=== PATIENT | male | born 1985 | race Caucasian/White ===

== ENCOUNTER 2021-12-10 22:05 | Inpatient (IN) | payer BC ==
--- NOTE | 2021-12-10 22:24 | ED ---
Abdominal Pain HPI - General Stated Complaint: Abd Pain Time Seen by Provider: 12/10/21 22:07 Source: patient, EMS Mode of arrival: EMS - History of Present Illness Initial Comments: Rashmi is a 36-year-old male with a history of diverticulitis. Patient was admitted to [facility] a week and a half ago for diverticulitis, history with IV antibiotics was signed himself out AMA one week ago today. Earlier today saw his primary care had outpatient labs done and was told his white count was high and he should be reevaluated. Patient has had persistent pain in the left lower quadrant. He had repeat imaging done at outside facility today and found that he has a 9 cm segment of circumferential wall thickening of the sigmoid colon consistent with a sigmoid colitis as well as evidence of microperf oration and adjacent phlegmon measuring 38 x 20 x 20 mm. Patient was treated with IV Zosyn and requested transfer to this facility. - Related Data Home Medications Medication Instructions Recorded Confirmed Dicyclomine [Bentyl] 10 mg PO DAILY 12/10/21 12/10/21 Levofloxacin [Levaquin] 750 mg PO DAILY 12/10/21 12/10/21 Omeprazole 40 mg PO BID 12/10/21 12/10/21 metroNIDAZOLE [Flagyl] 500 mg PO TID@0700,1500,2300 12/10/21 12/10/21 Allergies Allergy/AdvReac Type Severity Reaction Status Date / Time No Known Allergies Allergy Verified 12/10/21 22:53 Review of Systems ROS Statement: Those systems with pertinent positive or pertinent negative responses have been documented in the HPI. ROS Other: All systems not noted in ROS Statement are negative. General Exam - General Exam Comments Initial Comments: Physical Exam GENERAL: Patient is well-developed and well-nourished. Patient is nontoxic and well-hydrated and is in no distress. HENT: Normocephalic, Atraumatic. EYES: PERRL, EOMI PULMONARY: Unlabored respirations. CARDIOVASCULAR: RRR Warm and well perfused extremities ABDOMEN: Tender in LLQ SKIN: No rashes or bruising : Deferred NEUROLOGIC: Alert and oriented Normal speech Normal gait MUSCULOSKELETAL: Moving all extremities with no apparent injury PSYCHIATRIC: No SI/HI Course Vital Signs 12/10/21 22:10 Temperature 98.3 F Pulse Rate 88 Respiratory 18 Rate Blood Pressure 137/96 O2 Sat by Pulse 100 Oximetry Medical Decision Making - Medical Decision Making Patient was seen and evaluated, history was obtained from the patient and review of palpation records Patient will be admitted for diverticulitis with microperforation and abscess Patient care discussed with Dr Mosley who accepts admission with consult to surgery Disposition Clinical Impression: Diverticulitis, Abdominal abscess Disposition: ADMITTED IP TO THIS [facility] Condition: Stable Is patient prescribed a controlled substance at d/c from ED?: No Referrals: Fei Powell MD [Primary Care Provider] - 1-2 days
[2021-12-10] MEDS ORDERED: MORPHINE SULFATE 4 MG/ML SYRINGE IV PRN (23:06)
[2021-12-10] MEDS ORDERED: ONDANSETRON 4 MG/2 ML VIAL IVP PRN (23:06)
[2021-12-10] MEDS ORDERED: NALOXONE 0.4 MG/ML 1 ML VIAL IV PRN (23:06)
[2021-12-10] MEDS: SODIUM CHLORIDE 0.9% 1,000 ML IV SCH (23:37)
[2021-12-11] MEDS: PIPERACILLIN-TAZOBACTAM 3.375 GM in SODIUM CHLORIDE 0.9% 100 ML IVPB SCH ×3 (07:09→22:11)
[2021-12-11 09:10] LABS: Basophils # (A) 0.1 k/uL (0-0.2); Basophils % (A) 1 %; Eosinophils # (A) 0.2 k/uL (0-0.7); Eosinophils % (A) 1 %; HCT 48.4 % (39.0-53.0); HGB 16.5 gm/dL (13.0-17.5); Lymphocytes # (A) 2.1 k/uL (1.0-4.8); Lymphocytes % (A) 17 %; MCH 31.1 pg (25.0-35.0); MCV 91.5 fL (80.0-100.0); Mean Platelet Volume 7.1; Monocytes # (A) 0.7 k/uL (0-1.0); Monocytes % (A) 6 %; Neutrophils # (A) 9.1 k/uL (1.3-7.7); Neutrophils % (A) 74 %; Platelet Count 387 k/uL (150-450); RBC 5.29 m/uL (4.30-5.90); RDW 13.9 % (11.5-15.5); WBC 12.3 k/uL (3.8-10.6)
[2021-12-11 09:28] LABS: African American GFR (CKD) >90 (>60 ml/min/1.73 sqM); Anion Gap 7 mmol/L; Blood Urea Nitrogen 9 mg/dL (9-20); Carbon Dioxide 25 mmol/L (22-30); Chloride 104 mmol/L (98-107); Glucose 98 mg/dL (74-99); Non-African American GFR(CKD) >90 (>60 ml/min/1.73 sqM); Potassium 4.4 mmol/L (3.5-5.1); Sodium 136 mmol/L (137-145)
--- NOTE | 2021-12-11 10:00 | P.GSCN ---
History of Present Illness Consult date: 12/11/21 History of present illness: CHIEF COMPLAINT: Abdominal pain, abnormal labs HISTORY OF PRESENT ILLNESS: This is a 36-year-old male with a history of d iverticulitis who states he was first diagnosed approximately 5 months ago and was admitted to on [facility]. He states he was treated with antibiotics and then had follow-up with his safety representative here at [facility] and was scheduled for a colonoscopy for which she state saw some inflammation. He denies any history of Crohn's or colitis. He also was recently rehospitalized a week ago from this last Wednesday and was admitted at [facility] and treated with antibiotic therapy, however the Wednesday of that week he did leave AGAINST MEDICAL ADVICE because he states they weren't doing anything. He was seen in his office this week and was told he had an elevated white count so he was told to go to the emergency department and he went to [facility]. There he had a CT of the abdomen and reportedly he had a microperforation with adjacent phlegmon. Also noted from transfer record a 9 cm segment of thickened sigmoid colon with microperforation, early abscess. Labs from [facility] showed an elevated white count of 14.4 hemoglobin 17 platelet count 395,000 lactic acid 1.1 he was started on Zosyn. He states bowel movements have been loose, 2-3 yesterday, no blood in his stool. No nausea or vomiting. States abdominal pain is a 2 out of 10. PAST MEDICAL HISTORY: See list. PAST SURGICAL HISTORY: See list. MEDICATIONS: See list. ALLERGIES: See list. SOCIAL HISTORY: No illicit drug use. REVIEW OF SYSTEMS: CONSTITUTIONAL: Denies fever or chills. HEENT: Denies blurred vision, vision changes, or eye pain. Denies hemoptysis CARDIOVASCULAR: Denies chest pain or pressure. RESPIRATORY: No shortness of breath. GASTROINTESTINAL: See HPI for pertinent findings HEMATOLOGIC: Denies bleeding disorders. GENITOURINARY: Denies any blood in urine or increased urinary frequency. SKIN: Denies pruitis. Denies rash. PHYSICAL EXAM: VITAL SIGNS: Reviewed GENERAL: Well-developed in no acute distress. HEENT: No sclera icterus. Extraocular movements grossly intact. Moist buccal mucosa. Head is atraumatic, normocephalic. No nasal drainage. ABDOMEN: Soft. Obese. Nondistended. Tenderness with palpation right center and left lower quadrant, greatest in the left lower quadrant. NEUROLOGIC: Alert and oriented. Cranial nerves II through XII grossly intact. LABORATORY DATA: WBC 12.3 hemoglobin 16.5 hematocrit 48 platelet count 387,000 Sodium 136 potassium 4.4 BUN 9 creatinine 0.83 glucose 98 calcium 9.0 magnesium 2.0 IMAGING: CT from [facility] to be uploaded ASSESSMENT: 1. Abdominal pain 2. Leukocytosis 3. Diverticulitis with reported microperforation, abscess from CAT scan from outside facility 3. Abdominal pain PLAN: 1. Continue IV Zosyn 2. Keep nothing by mouth 3. Repeat labs in the morning 4. Please upload CT disc from [facility] 5. Protonix for GI prophylaxis 6. Further recommendations forthcoming per surgeon Thank you for this consultation, we will continue to follow. The impression and plan of care has been dictated as directed. Dr. Perkins I performed a history and examination of this patient, discussed the same with the dictator. I agree with the dictator's note ,documented as a scribe. Any additional findings or plans will be noted. I have personally seen and examined the patient, reviewed the [employer]PAs history, exam and MDM and agree with the assessment and plan as written. Based on total visit time, I have performed more than 50% of the visit. As above: Patient with diverticulitis and small pericolonic abscess. Apparently when he was at [facility] they had discussed possible laparoscopic drainage of this abscess. Patient apparently left AGAINST MEDICAL ADVICE at that time however. He has been on oral antibiotics after that recent discharge. Came back to the hospital with persistent discomfort. CAT scan from [place] reviewed. He does have a abscess that does not appear to be amenable to percutaneous drainage. Continue IV antibiotics. Discussed options of laparoscopic drainage. This carries some risk of conversion to open with subsequent colectomy and colostomy. He would like to avoid surgery if possible. We'll consult infectious disease at this time. Begin clear liquids. Past Medical History Past Medical History: No Reported History History of Any Multi-Drug Resistant Organisms: None Reported Smoking Status: Current every day smoker Medications and Allergies Home Medications Medication Instructions Recorded Confirmed Type Dicyclomine [Bentyl] 10 mg PO DAILY 12/10/21 12/10/21 History Levofloxacin [Levaquin] 750 mg PO DAILY 12/10/21 12/10/21 History Omeprazole 40 mg PO BID 12/10/21 12/10/21 History metroNIDAZOLE [Flagyl] 500 mg PO TID@0700,1500,2300 12/10/21 12/10/21 History Allergies Allergy/AdvReac Type Severity Reaction Status Date / Time No Known Allergies Allergy Verified 12/10/21 22:53 Surgical - Exam Vital Signs Temp Pulse Resp BP Pulse Ox 98.3 F 88 18 137/96 100 12/10/21 22:10 12/10/21 22:10 12/10/21 22:10 12/10/21 22:10 12/10/21 22:10 Results - Labs 12/11/21 08:49 12/11/21 08:49
[2021-12-11] MEDS: SODIUM CHLORIDE 0.9% 1,000 ML IV SCH ×2 (11:45→14:17)
[2021-12-11] MEDS: ENOXAPARIN 40 MG/0.4 ML SYRINGE SQ SCH (11:45)
[2021-12-11] MEDS: PANTOPRAZOLE 40 MG TABLET PO SCH ×2 (11:45→17:46)
[2021-12-11] MEDS: NICOTINE 21MG/24HR PATCH TRANSDERM SCH (12:59)
--- NOTE | 2021-12-11 14:01 | P.HPIM ---
History of Present Illness H&P Date: 12/11/21 Chief Complaint: Elevated white count This is a 36-year-old patient who follows with Dr. Powell. On November 30 patient was admitted to [facility] with a diagnosis of acute diverticulitis. Patient left AMA on December 03. At home he was doing soft liquid diet. No fever no chills. No nausea vomiting. Every time he would urinate he would have pain. And his family doctor's office found to have elevated white count. Sent back to the ER. Started on IV Zosyn. Patient is a smoker. at the bedside. Computed tomography scan done at the outside facility showed 9 cm segment of circumferential wall thickening of the sigmoid colon and evidence of microperforation and adjacent phlegmon measuring 38/20/20 mm. Review of systems: GEN.: Tired EYES: None HEENT: None NECK: None RESPIRATORY: None CARDIOVASCULAR: None GASTROINTESTINAL: Abdominal pain GENITOURINARY: None MUSCULOSKELETAL: None LYMPHATICS: None HEMATOLOGICAL: None PSYCHIATRY: None NEUROLOGICAL: None Past medical history to include: Irritable bowel syndrome, GERD Social history: Jaren Dey. . Smokes a pack a day. 2 marijuana joints a day. 2 beers a day. Family history: Reviewed, noncontributory to presentation Physical examination: VITAL SIGNS: 98.3, 88, 18, 137/96, 100% room air GENERAL: BMI 29.3, declining but awake slightly tired. EYES: Pupils equal. Conjunctiva normal. HEENT: External appearance of nose and ears normal, oral cavity grossly normal. NECK: JVD not raised; masses not palpable. HEART: First and second heart sounds are normal; no edema. LUNGS: Respiratory rate normal; clear to auscultation. ABDOMEN: Soft, left lower quadrant tenderness, no guarding rigidity, liver spleen not palpable, no masses palpable. PSYCH: Alert and oriented x3; mood and affect normal. MUSCULOSKELETAL:No Clubbing/cyanosis;muscles-grossly intact NEUROLOGICAL: Cranial nerves grossly intact; no facial asymmetry, power and sensation grossly intact. LYMPHATICS: No lymph nodes palpable in the axilla and neck INVESTIGATIONS, reviewed in the clinical context: White count 12.3 hemoglobin 16.5 platelets 387 potassium 4.4 creatinine 0.83 Assessment and plan -Acute sigmoid diverticulitis with localized perforation IV Zosyn. Nothing by mouth. -Chronic nicotine dependence, citrus smoker Consult. Nicotine patch -Recreational marijuana use Counseled -Irritable bowel syndrome Uses Bentyl when necessary -GERD Protonix IV Zosyn. Nothing by mouth. Resume home medications. IV fluids. Subcu Lovenox. General surgery consultation. Activity as tolerated. Care was discussed with the patient and at the bedside. Questions answered. Given the complexity and severity of patient's condition expect the patient to be in the hospital at least for 2 overnights Smoke cessation counseling: This was done with the patient. Nicotine patch is being given. More than 3 minutes was spent for this Past Medical History Past Medical History: No Reported History History of Any Multi-Drug Resistant Organisms: None Reported Smoking Status: Current every day smoker Medications and Allergies Home Medications Medication Instructions Recorded Confirmed Type Dicyclomine [Bentyl] 10 mg PO DAILY 12/10/21 12/10/21 History Levofloxacin [Levaquin] 750 mg PO DAILY 12/10/21 12/10/21 History Omeprazole 40 mg PO BID 12/10/21 12/10/21 History metroNIDAZOLE [Flagyl] 500 mg PO TID@0700,1500,2300 12/10/21 12/10/21 History Allergies Allergy/AdvReac Type Severity Reaction Status Date / Time No Known Allergies Allergy Verified 12/10/21 22:53 Physical Exam Vitals: Vital Signs Temp Pulse Pulse Resp BP BP Pulse Ox 12/11/21 07:03 98.6 F 76 20 129/86 96 12/11/21 03:04 82 17 12/11/21 01:21 98.0 F 82 17 132/90 100 12/10/21 22:10 98.3 F 88 18 137/96 100 Intake and Output 12/10/21 12/11/21 12/11/21 22:59 06:59 14:59 Intake Total 450 Balance 450 Intake: Intake, IV Titration 450 Amount Sodium Chloride 0.9% 1, 450 000 ml @ 75 mls/hr IV . [id number] [facility] Rx#:[id number] Oral 0 Other: Voiding Method Toilet Toilet Weight 95.254 kg 95.254 kg Results CBC & Chem 7: 12/11/21 08:49 12/11/21 08:49 Labs: Abnormal Lab Results - Last 24 Hours (Table) 12/11/21 12/11/21 Range/Units 08:49 08:49 WBC 12.3 H (3.8-10.6) k/uL Neutrophils # 9.1 H (1.3-7.7) k/uL Sodium 136 L (137-145) mmol/L
[2021-12-11 16:49] LABS: Glucose,Whole Blood 121 mg/dL (75-99)
[2021-12-12] MEDS: PIPERACILLIN-TAZOBACTAM 3.375 GM in SODIUM CHLORIDE 0.9% 100 ML IVPB SCH ×3 (05:00→22:09)
[2021-12-12] MEDS: SODIUM CHLORIDE 0.9% 1,000 ML IV SCH ×4 (05:01→22:11)
[2021-12-12 05:20] LABS: Basophils # (A) 0.1 k/uL (0-0.2); Basophils % (A) 1 %; Eosinophils # (A) 0.2 k/uL (0-0.7); Eosinophils % (A) 2 %; HCT 46.6 % (39.0-53.0); Lymphocytes # (A) 2.3 k/uL (1.0-4.8); Lymphocytes % (A) 19 %; MCH 31.4 pg (25.0-35.0); MCHC 34.2 g/dL (31.0-37.0); MCV 91.7 fL (80.0-100.0); Mean Platelet Volume 7.1; Monocytes # (A) 0.6 k/uL (0-1.0); Monocytes % (A) 5 %; Neutrophils # (A) 8.9 k/uL (1.3-7.7); Neutrophils % (A) 72 %; Platelet Count 350 k/uL (150-450); RBC 5.08 m/uL (4.30-5.90); RDW 13.9 % (11.5-15.5); WBC 12.3 k/uL (3.8-10.6)
[2021-12-12] MEDS: ENOXAPARIN 40 MG/0.4 ML SYRINGE SQ SCH (08:41)
[2021-12-12] MEDS: NICOTINE 21MG/24HR PATCH TRANSDERM SCH (08:42)
[2021-12-12] MEDS: PANTOPRAZOLE 40 MG TABLET PO SCH ×2 (08:42→17:06)
[2021-12-12] MEDS ORDERED: PANTOPRAZOLE 40 MG/10 ML VIAL IVP SCH (09:00)
[2021-12-12 09:27] LABS: African American GFR (CKD) 111.7 (60.0-200.0); Anion Gap 14.3 mmol/L (10.00-18.00); Calcium 9.1 mg/dL (8.7-10.3); Carbon Dioxide 22.7 mmol/L (20.0-27.5); Non-African American GFR(CKD) 96.4 (60.0-200.0); Potassium 4.2 mmol/L (3.5-5.5)
--- NOTE | 2021-12-12 14:19 | P.PN ---
Subjective Progress Note Date: 12/12/21 CHIEF COMPLAINT: Abdominal pain, leukocytosis, diverticulitis HISTORY OF PRESENT ILLNESS: Patient is 36-year-old male who was a transfer from [facility] with history of diverticulitis. 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 Computed tomography scan from [place] showed diverticulitis with possible micro-perforation, abscess. Patient is currently on IV Zosyn. He's been afebrile. He states he has no abdominal pain. He's had no nausea or vomiting. He has been tolerating clear liquid diet. He's been having soft bowel movements. Denies any blood. PHYSICAL EXAM: VITAL SIGNS: Reviewed. GENERAL: Well-developed in no acute distress. HEENT: No sclera icterus. Extraocular movements grossly intact. Moist buccal mucosa. Head is atraumatic, normocephalic. ABDOMEN: Soft. Nondistended. Nontender. NEUROLOGIC: Alert and oriented. Cranial nerves II through XII grossly intact. ASSESSMENT: 1. Abdominal pain 2. Leukocytosis 3. Diverticulitis with reported microperforation, abscess from CAT scan from outside facility 3. Abdominal pain PLAN: 1. Continue IV Zosyn 2. Advance to regular diet 3. Repeat labs in the morning 4. Protonix for GI prophylaxis 5. Weight recommendations from infectious disease on antibiotic therapy, otherwise general surgeon said patient is stable for discharge Thank you for this consultation, we will continue to follow. The impression and plan of care has been dictated as directed. I performed a history and examination of this patient, discussed the same with the dictator. I agree with the dictator's note ,documented as a scribe. Any additional findings or plans will be noted. Objective - Vital Signs Vital signs: Vital Signs Temp 98.4 F 12/12/21 07:50 Pulse 71 12/12/21 07:55 Resp 15 12/12/21 07:55 BP 134/84 12/12/21 07:50 Pulse Ox 95 12/12/21 07:50 Intake & Output 12/11/21 12/12/21 12/12/21 18:59 06:59 18:59 Other: Voiding Method Toilet Toilet Toilet # Voids 3 1 - Labs CBC & Chem 7: 12/12/21 04:58 12/12/21 04:58 Labs: Abnormal Lab Results - Last 24 Hours (Table) 12/11/21 12/12/21 12/12/21 Range/Units 16:48 04:58 04:58 WBC 12.3 H (3.8-10.6) k/uL Neutrophils # 8.9 H (1.3-7.7) k/uL BUN 8.0 L (9.0-27.0) mg/dL BUN/Creatinine Ratio 8.00 L (12.00-20.00) Ratio POC Glucose (mg/dL) 121 H (75-99) mg/dL
--- NOTE | 2021-12-12 15:03 | P.PN ---
Progress Note - Text Progress Note Date: 12/12/21 Chief Complaint: Elevated white count This is a 36-year-old patient who follows with Dr. Powell. On November 30 patient was admitted to [facility] with a diagnosis of acute diverticulitis. Patient left AMA on December 03. At home he was doing soft liquid diet. No fever no chills. No nausea vomiting. Every time he would urinate he would have pain. And his family doctor's office found to have elevated white count. Sent back to the ER. Started on IV Zosyn. Patient is a smoker. at the bedside. Computed tomography scan done at the outside facility showed 9 cm segment of circumferential wall thickening of the sigmoid colon and evidence of microperforation and adjacent phlegmon measuring 38/20/20 mm. Admitted with acute diverticulitis with associated phlegmon. Started on IV Zosyn. Clear liquids. December 12: Some lower abdominal pain. Had a loose bowel movement. Later today surgery advanced diet to regular. Increase activity. Active Medications Enoxaparin Sodium (Enoxaparin 40 Mg/0.4 Ml Syringe) 40 mg SQ DAILY [facility] Last Admin: 12/12/21 08:41 Dose: Not Given Documented by: Piperacillin Sod/Tazobactam (Sod 3.375 gm/ Sodium Chloride) 100 mls @ 25 mls/hr IVPB Q8H [facility]; Protocol Last Admin: 12/12/21 13:37 Dose: 25 mls/hr Documented by: Sodium Chloride (Saline 0.9%) 1,000 mls @ 130 mls/hr IV .[id number] [facility] Last Admin: 12/12/21 06:28 Dose: Not Given Documented by: Morphine Sulfate (Morphine Sulfate 4 Mg/Ml Syringe) 4 mg IV Q4HR PRN PRN Reason: Severe Pain Naloxone HCl (Naloxone 0.4 Mg/Ml 1 Ml Vial) 0.2 mg IV Q2M PRN PRN Reason: Opioid Reversal Nicotine (Nicotine 21mg/24hr Patch) 1 patch TRANSDERM DAILY [facility] Last Admin: 12/12/21 08:42 Dose: 1 patch Documented by: Ondansetron HCl (Ondansetron 4 Mg/2 Ml Vial) 4 mg IVP Q8HR PRN PRN Reason: Nausea And Vomiting Pantoprazole Sodium (Pantoprazole 40 Mg Tablet) 40 mg PO AC-BID [facility] Last Admin: 12/12/21 08:42 Dose: 40 mg Documented by: Past medical history to include: Irritable bowel syndrome, GERD Social history: Jaren Dey. . Smokes a pack a day. 2 marijuana joints a day. 2 beers a day. Family history: Reviewed, noncontributory to presentation Physical examination: VITAL SIGNS: 98.4, 71, 15, 134/84, 95% room air GENERAL: Laying in bed awake slightly tired. EYES: Pupils equal. Conjunctiva normal. HEENT: External appearance of nose and ears normal, oral cavity grossly normal. NECK: JVD not raised; masses not palpable. HEART: First and second heart sounds are normal; no edema. LUNGS: Respiratory rate normal; clear to auscultation. ABDOMEN: Soft, left lower quadrant tenderness, no guarding rigidity, liver s pleen not palpable, no masses palpable. PSYCH: Alert and oriented x3; mood and affect normal. INVESTIGATIONS, reviewed in the clinical context: December 12: White count 12.3 hemoglobin 16 potassium 4.2 creatinine 1. Pro- calcitonin 0.04 White count 12.3 hemoglobin 16.5 platelets 387 potassium 4.4 creatinine 0.83 Assessment and plan -Acute sigmoid diverticulitis with localized perforation IV Zosyn. Nothing by mouth. -Chronic nicotine dependence, cigarette smoker Consult. Nicotine patch -Recreational marijuana use Counseled -Irritable bowel syndrome Uses Bentyl when necessary -GERD Protonix IV Zosyn. Diet has been advanced to regular per surgery. We'll see how the patient does. Increase activity. Repeat CBC. Check CRP.
--- NOTE | 2021-12-13 00:03 | P.CONS ---
History of Present Illness - Reason for Consult Consult date: 12/12/21 Diverticulitis with abscess Requesting physician: Raul Leach - Chief Complaint Abdominal pain x few days - History of Present Illness Patient is a 36-year male with a past medical significant for diverticulitis in this patient started having a pain to the left lower quadrant area about a week ago for the patient was admitted at [facility] patient mention he was treated with IV the Levaquin and Flagyl for about a day subsequently the patient left AGAINST MEDICAL ADVICE and did follow-up with his GI specialist patient did have a blood work done and subsequently patient was told that his white count was elevated and that he needs to go back to the [facility] patient went to the [facility] where the patient did have a CT of abdominal pelvis which mention diverticulitis with microperforation with adjacent phlegmon with a 9 cm segment of thickened sigmoid colon more patient did have elevated white count patient was given a dose of Zosyn subsequently has been transferred to [facility] for further evaluation patient presentation the hospital has been afebrile he did have a white count of 12.3 with a left shift kidney function has been normal patient is currently being treated with Zosyn infectious disease was consulted for further management of antibiotic therapy, patient is currently mentioned that abdominal pain has d ecreased in intensity it was around 7-8 out of 10 down to about 4 with no radiation and some nausea but no vomiting and has been complaining of diarrhea but no blood or mucus in the stool Review of Systems Positive point has been mentioned in the HPI rest of the systems are negative Past Medical History Past Medical History: No Reported History History of Any Multi-Drug Resistant Organisms: None Reported Smoking Status: Current every day smoker Medications and Allergies Home Medications Medication Instructions Recorded Confirmed Type Dicyclomine [Bentyl] 10 mg PO DAILY 12/10/21 12/10/21 History Levofloxacin [Levaquin] 750 mg PO DAILY 12/10/21 12/10/21 History Omeprazole 40 mg PO BID 12/10/21 12/10/21 History metroNIDAZOLE [Flagyl] 500 mg PO TID@0700,1500,2300 12/10/21 12/10/21 History Allergies Allergy/AdvReac Type Severity Reaction Status Date / Time No Known Allergies Allergy Verified 12/10/21 22:53 Physical Exam Vitals: Vital Signs Temp Pulse Resp BP Pulse Ox 12/12/21 07:55 71 15 12/12/21 07:50 98.4 F 71 15 134/84 95 12/12/21 01:38 98.6 F 70 18 128/80 96 12/11/21 19:25 74 16 12/11/21 19:24 98.1 F 74 16 145/91 96 12/11/21 14:35 98.6 F 64 16 139/84 97 Intake and Output 12/11/21 12/12/21 12/12/21 22:59 06:59 14:59 Other: Voiding Method Toilet Toilet # Voids 3 1 GENERAL DESCRIPTION: Middle-aged male lying in bed, no distress. No tachypnea or accessory muscle of respiration use. HEENT: Shows Pallor , no scleral icterus. Oral mucous membrane is dry. No pharyngeal erythema or thrush NECK: Trachea central, no thyromegaly. LUNGS: Unlabored breathing. Clear to auscultation anteriorly. No wheeze or crackle. HEART: S1, S2, regular rate and rhythm. No loud murmur ABDOMEN: Soft, mild left lower quadrant tenderness , no guarding or rigidity, no organomegaly EXTREMITIES: No edema of feet. SKIN: No rash, no masses palpable. NEUROLOGICAL: The patient is awake, alert, oriented x3, mood and affect normal. Results CBC & Chem 7: 12/12/21 04:58 12/12/21 04:58 Labs: Abnormal Lab Results - Last 24 Hours (Table) 12/11/21 12/12/21 12/12/21 Range/Units 16:48 04:58 04:58 WBC 12.3 H (3.8-10.6) k/uL Neutrophils # 8.9 H (1.3-7.7) k/uL BUN 8.0 L (9.0-27.0) mg/dL BUN/Creatinine Ratio 8.00 L (12.00-20.00) Ratio POC Glucose (mg/dL) 121 H (75-99) mg/dL Assessment and Plan (1) Abdominal abscess Current Visit: Yes Status: Acute Code(s): UMO3313 - SNOMED Code(s): 76796397 (2) Diverticulitis Current Visit: Yes Status: Acute Code(s): K57.92 - DVTRCLI OF INTEST, PART UNSP, W/O PERF OR ABSCESS W/O BLEED SNOMED Code(s): 311834207 Plan: 1patient presented to hospital with abdominal pain in this patient who did have evidence of diverticulitis with microperforation and a small abscess we did call for enteric gram-negative with a likely pathogen. 2Zosyn 3.375 g every 8 hours to provide adequate antibiotic coverage. 3bowel rest 4repeat CAT scan on Wednesday if the patient did have overall improvement may transition to oral biotic versus consideration for outpatient antibiotic if persistent abscess. We will follow on clinical condition and cultures to further adjust medication if needed Thank you for this consultation will follow this patient along with you
[2021-12-13 04:37] LABS: Basophils # (A) 0.1 k/uL (0-0.2); Basophils % (A) 1 %; Eosinophils # (A) 0.2 k/uL (0-0.7); Eosinophils % (A) 2 %; HCT 47.8 % (39.0-53.0); Lymphocytes # (A) 2.3 k/uL (1.0-4.8); Lymphocytes % (A) 19 %; MCH 30.5 pg (25.0-35.0); MCHC 33.4 g/dL (31.0-37.0); MCV 91.4 fL (80.0-100.0); Mean Platelet Volume 7.1; Monocytes # (A) 0.7 k/uL (0-1.0); Monocytes % (A) 6 %; Neutrophils # (A) 8.4 k/uL (1.3-7.7); Neutrophils % (A) 71 %; Platelet Count 359 k/uL (150-450); RBC 5.23 m/uL (4.30-5.90); RDW 13.6 % (11.5-15.5); WBC 11.9 k/uL (3.8-10.6)
[2021-12-13] MEDS: PIPERACILLIN-TAZOBACTAM 3.375 GM in SODIUM CHLORIDE 0.9% 100 ML IVPB SCH (05:40)
[2021-12-13] MEDS: NICOTINE 21MG/24HR PATCH TRANSDERM SCH (09:11)
[2021-12-13] MEDS: PANTOPRAZOLE 40 MG TABLET PO SCH (09:11)
[2021-12-13] MEDS: ENOXAPARIN 40 MG/0.4 ML SYRINGE SQ SCH (09:11)
[2021-12-13 09:21] VITALS: BP 130/80; PULSE 67; RESP 18; TEMP 97.4
--- NOTE | 2021-12-13 22:43 | P.PN ---
Subjective Progress Note Date: 12/13/21 Principal diagnosis: Diverticulitis with abscess Patient is a 36-year-old male with a past medical history significant for diverticulitis, admitted to the hospital with an episode of diverticulitis and microperforation and intra-abdominal abscess. On today's evaluation that is 12/13/2021, the patient denies having any fever or chills, the patient is feeling better the patient abdominal pain has resolved, the patient denies having any nausea no vomiting did have some diarrhea no chest pain shortness of breath or cough Objective - Vital Signs Vital signs: Vital Signs Temp 97.4 F L 12/13/21 08:00 Pulse 67 12/13/21 08:00 Resp 18 12/13/21 08:00 BP 130/80 12/13/21 08:00 Pulse Ox 94 L 12/13/21 08:00 Intake & Output 12/12/21 12/13/21 12/13/21 18:59 06:59 18:59 Intake Total 1200 Balance 1200 Intake: Intake, IV Titration 600 Amount Piperacillin-Tazobactam 3 200 .375 gm In Sodium Chloride 0.9% 100 ml @ 25 mls/hr IVPB Q8H [facility] Rx#: [id number] Sodium Chloride 0.9% 1, 400 000 ml @ 50 mls/hr IV . Q20H [facility] Rx#:[id number] Oral 600 Other: Voiding Method Toilet Toilet # Voids 3 2 - Exam GENERAL DESCRIPTION: A middle-age male up in bed in no distress RESPIRATORY SYSTEM: Unlabored breathing , decreased breath sounds at bases HEART: S1 S2 regular rate and rhythm , ABDOMEN: Soft , no tenderness EXTREMITIES: No edema feet - Labs CBC & Chem 7: 12/13/21 04:16 12/12/21 04:58 Labs: Abnormal Lab Results - Last 24 Hours (Table) 12/13/21 12/13/21 Range/Units 04:16 04:16 WBC 11.9 H (3.8-10.6) k/uL Neutrophils # 8.4 H (1.3-7.7) k/uL C-Reactive Protein 2.0 H (<1.0) mg/dL Assessment and Plan (1) Abdominal abscess Status: Acute Code(s): YCV0119 - SNOMED Code(s): 91229126 (2) Diverticulitis Status: Acute Code(s): K57.92 - DVTRCLI OF INTEST, PART UNSP, W/O PERF OR ABSCESS W/O BLEED SNOMED Code(s): 900184352 Plan: 1patient presented to hospital with abdominal pain in this patient who did have evidence of diverticulitis with microperforation and a small abscess we did call for enteric gram-negative with a likely pathogen. Patient had shown clinical improvement and has been insisting on going home, patient advised to stay in the hospital for at least another 24 hour to continue with IV Zosyn and monitor his clinical course closely
== END 2021-12-13 12:53 | disposition left against medical advice (07) | DRG 392 ==
LOC: EC 22:05 → 4SSUR 23:06
PROVIDERS: ADMIT Hospitalist; ATTEND Hospitalist
DX: K57.20 Diverticulitis of large intestine with perforation and abscess without bleeding (principal); F17.210 Nicotine dependence, cigarettes, uncomplicated; K21.9 Gastro-esophageal reflux disease without esophagitis; K58.9 Irritable bowel syndrome, unspecified; Z53.29 Procedure and treatment not carried out because of patient's decision for other reasons; Z79.899 Other long term (current) drug therapy; D72.829 Elevated white blood cell count, unspecified
CPT/HCPCS: 80048; 83735; 84145; 85025; 86140; 96360; 96361; 99285